=== PATIENT | male | born 1980 | race Caucasian/White ===

== ENCOUNTER 2017-08-10 00:57 | Inpatient (IN) | payer OTHER ==
[~2017-08-10] VITALS: Ht 188 cm; Wt 93.2 kg
[2017-08-10] MEDS ORDERED: KETOROLAC 30 MG/1 ML ONE (02:18)
[2017-08-10] MEDS ORDERED: ONDANSETRON 2MG/ML, 2ML IVPush PRN ×2 (02:30→11:30)
[2017-08-10] MEDS ORDERED: KETOROLAC 30 MG/1 ML IVPush ONE (02:30)
[2017-08-10] MEDS: KETOROLAC 30 MG/1 ML IVPush SCH ×3 (02:30→15:08)
[2017-08-10] MEDS ORDERED: POLYETHYLENE GLYCOL 17 GM PACKET PO PRN (02:30)
[2017-08-10] MEDS ORDERED: DOCUSATE 100 MG CAPSULE PO PRN (02:30)
[2017-08-10] MEDS ORDERED: ACETAMINOPHEN 325 MG TABLET PO PRN ×2 (02:30→11:30)
[2017-08-10] MEDS ORDERED: HYDROmorphone 2 MG/ML, 1ML IVPush PRN (02:30)
[2017-08-10] MEDS ORDERED: HYDROmorphone 10 MG in SODIUM CHLORIDE 0.9% 245 ML IVPB PRN (02:32)
[2017-08-10] MEDS ORDERED: LORazepam 2 MG/ML, 1ML IVPush PRN (03:00)
[2017-08-10] MEDS: POTASSIUM CHLORIDE 20 MEQ in SODIUM CHLORIDE 0.9% 1,000 ML IV SCH ×2 (03:39→09:01)
[2017-08-10 03:47] VITALS: BP 138/84
[2017-08-10 06:14] LABS: BLOOD UREA NITROGEN 19 mg/dL (7-18)
[2017-08-10 07:00] VITALS: BP 129/73
[2017-08-10] MEDS: OXYcodone IR 5MG TABLET PO PRN ×2 (07:08→17:50)
[2017-08-10] MEDS ORDERED: SENNA/DOCUSATE TABLET PO SCH (09:00)
[2017-08-10] MEDS ORDERED: MIDAZOLAM 1 MG/ML, 2ML ONE (11:00)
[2017-08-10] MEDS ORDERED: ONDANSETRON 2MG/ML, 2ML ONE (11:03)
[2017-08-10] MEDS ORDERED: PROPOFOL 10 MG/ML, 20ML ONE (11:03)
[2017-08-10] MEDS ORDERED: CEFAZOLIN 1,000 MG ONE (11:03)
[2017-08-10] MEDS ORDERED: DEXAMETHASONE 4 MG/ML, 1ML ONE (11:03)
[2017-08-10] MEDS ORDERED: OXYcodone 5 MG/5 ML ORAL.SOL UDC PO PRN (11:30)
[2017-08-10] MEDS ORDERED: FENTANYL PF 100 MCG/2ML IV PRN (11:30)
[2017-08-10] MEDS ORDERED: HYDROmorphone 1 MG/ML, 1ML IV PRN (11:30)
[2017-08-10] MEDS ORDERED: MEPERIDINE/PF 25MG/0.5ML IVPush PRN (11:30)
[2017-08-10] MEDS ORDERED: FENTANYL PF 250 MCG/5ML ONE (11:31)
[2017-08-10] MEDS ORDERED: OXYcodone 5 MG/5 ML ORAL.SOL UDC ONE (11:56)
[2017-08-10] MEDS ORDERED: OMNIPAQUE 350 MG/ML, 50 ML BOTTLE ONE (12:43)
[2017-08-10] MEDS ORDERED: OXYcodone IR 5MG TABLET PO PRN (13:00)
[2017-08-10 13:09] VITALS: BP 128/74
[2017-08-10] MEDS ORDERED: PHENAZOPYRIDINE 200 MG TABLET PO SCH (14:00)
[2017-08-10] MEDS ORDERED: SODIUM BICARBONATE IV SCH (15:00)
[2017-08-10] MEDS ORDERED: SODIUM CHLORIDE 0.9% IV SCH (15:00)
[2017-08-10] MEDS ORDERED: PHEN-418 PO (15:52)
[2017-08-10] MEDS ORDERED: OXYC5CAP2 PO (18:09)
[2017-08-10] MEDS ORDERED: SODI325T PO (18:11)
[2017-08-10 18:43] VITALS: BP 124/64
== END 2017-08-10 18:50 | disposition home or self-care (01) | DRG 694 ==
LOC: SUATTDRO 02:14 → ED 02:16 → EDIP 02:20 → 4NOR 02:39
PROVIDERS: ADMIT Family Medicine; ATTEND Family Medicine
PROC: BT1F1ZZ Fluoroscopy of Left Kidney, Ureter and Bladder using Low Osmolar Contrast (ICD-10-PCS; 2017-08-10)
PROC: 0T778DZ Dilation of Left Ureter with Intraluminal Device, Via Natural or Artificial Opening Endoscopic (ICD-10-PCS; principal; 2017-08-10 11:00)
DX: N13.2 Hydronephrosis with renal and ureteral calculous obstruction (principal); E87.1 Hypo-osmolality and hyponatremia; E87.6 Hypokalemia; N13.5 Crossing vessel and stricture of ureter without hydronephrosis; Z87.442 Personal history of urinary calculi
CPT/HCPCS: 36415; 51702; 74000; 74420; 80048; 83735; 96374; J0690; J1100; J1170; J1885; J2250; J2405; J2704; J3010; J3480; Q9967; C1758; C1769; C2617; J7030

== ENCOUNTER → 2017-08-21 | Outpatient (CLI) | payer OTHER ==
[~2017-08-21] MED LIST: OXYC5CAP2 PO; PHEN-418 PO; SODI325T PO
== END | disposition home or self-care (01) ==
LOC: CFH 14:22 → EDSTATUS 14:45
PROVIDERS: ATTEND Urology
DX: N20.0 Calculus of kidney (principal)
CPT/HCPCS: 74176

== ENCOUNTER 2017-08-29 06:09 | Day surgery (SDC) | payer OTHER ==
[2017-08-28 11:52] LABS: ASPARTATE AMINO TRANSFERASE 8 U/L (15-37); BLOOD UREA NITROGEN 18 mg/dL (7-18)
[~2017-08-29] VITALS: Ht 188 cm; Wt 86.8 kg
[~2017-08-29 06:09] MED LIST changes: +dayquil PO; +nyquil PO
[2017-08-29 06:34] VITALS: BP 113/78
[2017-08-29] MEDS ORDERED: LACTATED RINGERS 1,000 ML IV SCH (06:35)
[2017-08-29] MEDS ORDERED: FENTANYL PF 250 MCG/5ML ONE (07:36)
[2017-08-29] MEDS ORDERED: MIDAZOLAM 1 MG/ML, 2ML ONE (07:36)
[2017-08-29] MEDS ORDERED: PROPOFOL 10 MG/ML, 20ML ONE (07:37)
[2017-08-29] MEDS ORDERED: ROCURONIUM 10 MG/ML,10ML ONE (07:37)
[2017-08-29] MEDS ORDERED: CEFAZOLIN 1,000 MG ONE (07:56)
[2017-08-29] MEDS ORDERED: DEXAMETHASONE 4 MG/ML, 1ML ONE (07:56)
[2017-08-29] MEDS ORDERED: ONDANSETRON 2MG/ML, 2ML IVPush PRN (08:00)
[2017-08-29] MEDS ORDERED: KETOROLAC 30 MG/1 ML IM PRN (08:00)
[2017-08-29] MEDS ORDERED: FENTANYL PF 100 MCG/2ML IV PRN (08:00)
[2017-08-29] MEDS ORDERED: OXYcodone 5 MG/5 ML ORAL.SOL UDC PO PRN (08:00)
[2017-08-29] MEDS ORDERED: ACETAMINOPHEN 325 MG TABLET PO PRN (08:00)
[2017-08-29] MEDS ORDERED: LABETALOL 5MG/ML, 20ML IV PRN (08:00)
[2017-08-29] MEDS ORDERED: PROMETHAZINE 25 MG/ML, 1ML IV PRN (08:00)
[2017-08-29] MEDS ORDERED: HYDROmorphone 1 MG/ML, 1ML IV PRN (08:00)
[2017-08-29] MEDS ORDERED: MEPERIDINE/PF 25MG/0.5ML IVPush PRN (08:00)
[2017-08-29] MEDS ORDERED: KETOROLAC 30 MG/1 ML ONE (08:15)
[2017-08-29] MEDS ORDERED: ONDANSETRON 2MG/ML, 2ML ONE ×2 (08:35)
== END 2017-08-29 10:00 ==
LOC: OUT 06:09
PROVIDERS: ATTEND Urology
DX: N20.0 Calculus of kidney (principal)
CPT/HCPCS: 36415; 52353; 74420; 80053; 81001; 82360; 87086; 88300; C1758; C1769; J0690; J1100; J1885; J2250; J2405; J2704; J3010; J7120